=== PATIENT | female | born 1990 | race Caucasian/White ===

== ENCOUNTER 2018-10-03 19:16 | Emergency (ER) | payer OTHER ==
[2018-10-03 19:29] VITALS: BP 129/78
--- NOTE | 2018-10-03 19:32 | EDPHY ---
H & P Time Seen by Provider: 10/03/18 19:22 HPI/ROS: CHIEF COMPLAINT: Right foot pain HISTORY OF PRESENT ILLNESS: 23 year old female via private vehicle complaining of acute right lateral foot pain after she was on a slack line a height of approximately 18 in, fell off and rolled her foot. She is complaining of acute right lateral foot pain. No calcaneus pain. No ankle pain. No proximal tibia or fibula pain. No head injury. Able to bear partial weight only. PHYSICAL EXAM (Prior to examination, patient consented to physical exam, hands were washed and my usual and customary physical exam procedures followed) 1) GENERAL: [Well-developed, well-nourished, alert and oriented. Appears to be in no acute distress.] 2) HEAD: [Normocephalic] 3) HEENT: [Pupils equal, round, reactive to light bilaterally. ] 4) LUNGS: [Breathing comfortably.] 5) MUSCULOSKELETAL: No visible signs of trauma. Tender to palpation dorsal midfoot and 5th metatarsal dorsal. No deformity no angulation. Intact skin. Ankle nontender. Calcaneus nontender. [proximal tibia and fibula nontender ] . [5th MT nontender] [negative Cruz test], [compartments soft] 6) SKIN: [ Intact] 7) VASCULAR: DP,PT pulses and cap refill present and brisk DIFFERENTIAL DIAGNOSIS: [ in no particular order including but not limited to fracture, sprain, compartment syndrome] Xray of the [ right foot ] interpreted by myself: [no definitive acute osseous abnormality ] [Procedure: Crutches indications for crutch use discussed with patient. Patient fitted for crutches by ER staff. Observed ambulating with crutches. I think the patient has the capacity to safely use crutches. Usual and customary crutch walking precautions provided] Procedure: Splint A [ pk boot] splint was applied by ER microbiological lab technician. After application of the splint I returned and re-examined the patient. The splint was adequately immobilizing the joint and distal to the splint the patient's circulation and sensation were intact. Patient shows no signs of compartment syndrome. Was given orthopedic precautions. Smoking Status: Never smoked Constitutional: Initial Vital Signs Temperature (C) 36.9 C 10/03/18 19:24 Heart Rate 65 10/03/18 19:24 Respiratory Rate 18 10/03/18 19:24 Blood Pressure 129/78 H 10/03/18 19:24 O2 Sat (%) 96 10/03/18 19:24 O2 Delivery Mode Room Air Allergies/Adverse Reactions: codeine Allergy (Verified 10/03/18 19:23) Home Medications: Medication Instructions Recorded NK [No Known Home Meds] 10/03/18 MDM/Departure - MDM Imaging Results: Imaging Impressions Foot X-Ray 10/03/18 19:30 Impression: No definite fracture right foot. Images reviewed myself - Depart Disposition: Home, Routine, Self-Care Clinical Impression: Right foot sprain Qualifiers: Encounter type: initial encounter Qualified Code(s): S93.601A - Unspecified sprain of right foot, initial encounter Condition: Good Instructions: Foot Sprain (ED) Additional Instructions: Return to the ER immediately if you experience discoloration, have worsening pain, numbness, tingling, or any other symptoms that concern you. If you received x-rays in the emergency department today, be advised, that ligamentous , tendon, muscular, and other non-bony injury cannot be fully ruled out. Try to keep your affected extremity elevated above the level of your chest, and keep cold packs on the affected area, for the next 48 hours. Adult Pain & Fever Control: We recommend Acetaminophen (Tylenol) and Ibuprofen (Motrin,Advil) for pain and fever control. When fever is high or pain severe, both drugs can be used at the same time, but at different intervals. Please note the time differences. Your dose is: Acetaminophen 650 mg every 4 to 6 hours Ibuprofen 600mg every 6 hours with food OR Note: do not take Acetaminophen with Hydrocodone (Vicodin, Lortab) or Oycodone (Percocet). These medications also contain Acetaminophen. No more than 3000mg of Acetaminophen should be taken in 24 hours (for an adult). Referrals: Aman Noel MD [Medical Doctor] - 2-3 days, call for appt.
== END 2018-10-03 20:09 | disposition home or self-care (01) ==
DX: S93.601A Unspecified sprain of right foot, initial encounter (principal); X50.1XXA Overexertion from prolonged static or awkward postures, initial encounter
CPT/HCPCS: L4386